=== PATIENT | female | born 1940 | race Caucasian/White ===

== ENCOUNTER 2017-12-06 07:10 | Day surgery (SDC) | payer MEDICARE, OTHER ==
[~2017-12-06 07:10] MED LIST: ALLO100 PO; BISHYD2.5 PO; LANS15EC PO
== END 2017-12-06 23:02 | disposition home or self-care (01) ==
LOC: MOI MAM 07:10
PROC: 0HBT3ZX Excision of Right Breast, Percutaneous Approach, Diagnostic (ICD-10-PCS; principal; 2017-12-06)
DX: D05.01 Lobular carcinoma in situ of right breast (principal); N60.81 Other benign mammary dysplasias of right breast
CPT/HCPCS: 19083; 77065; 88305; A4648; G0279

== ENCOUNTER 2020-02-22 09:31 | Day surgery (SDC) | payer MEDICARE, OTHER ==
[~2020-02-22] VITALS: Ht 157.5 cm; Wt 80.7 kg
[~2020-02-22 09:31] MED LIST changes: +ACET325 PO; +ALAVERT PO; +ALEVE220 MG PO; +ANAS1 PO; +PANT40 PO; +Sudogest60 MG PO; +VITAMIN D3125 MC3 PO; +ZOLEDRONIC ACID INJ
[2020-02-22] MEDS ORDERED: BISOPROLOL-HCT1 EAC1 PO (10:07)
--- NOTE | 2020-02-22 10:39 | NUR ---
History, Chart, Medications and Allergies reviewed before start of procedure. Lungs clear T/O to Auscultation. Patient confirms NPO status and agrees with scheduled surgery. Pre-Op teaching done. Pt verbalizes understanding. Patient reports completing Chlorhexadine shower X2 prior to admission to hospital.
--- NOTE | 2020-02-22 10:53 | NUR ---
PT REMOVED HEARING AID AND GLASSES AND PLACED IN HER BELONGINGS BAG.
--- NOTE | 2020-02-22 15:58 | NUR ---
PT ARRIVED TO THE ROOM AT APPROXIMATELY 1530. SHE HAS BEEN ALERT AND ORIENTED SINCE SHE ARRIVED. PAIN IS MANAGED. SHE IS MOVING ALL HER EXTREMITIES BUT REPORTS DECREASED SENSATION TO HER BLE, SHE HAD SPINAL ANESTHESIA. SHE DENIES NAUSEA AND IS TOLERATING PO. VSS. WILL MONITOR UNTIL REPORT TO ONCOMING RN.
--- NOTE | 2020-02-22 18:48 | NUR ---
SHIFT SUMMARY PT IS POD#0 FROM A R TERRI WITH DR. WOODSON. PT IS TOLERATING PO. PT CAME OUT LATE SO HE WAS UNABLE TO WORK WITH THERAPY. VSS. WILL MONITOR UNTIL REPORT TO ONCOMING RN.
--- NOTE | 2020-02-22 21:15 | NUR ---
AMBULATED TO COMMODE AND BACK TO BED WITH STANDBY ASSIST USING SAIT BELT AND FWW, TOLERATED WELL. SAFETY MEASURES IN PLACE. WILL CONTINUE TO MONITOR.
--- NOTE | 2020-02-23 03:30 | NUR ---
SHIFT SUMMARY LYING IN SEMI FOWLERS WITH EYES OPEN. HAS AMBULATED TO BATHROOM X2 THIS SHIFT WITH MINIMAL ASSISTANCE OF GAIT BELT AND FWW, TOLERATED WELL. AQUACEL TO RIGHT HIP IS C/D/I. PAIN MANAGED WITH SCHEDULED MEDS. DENIES FURTHER NEEDS OR WANTS AT THIS TIME. SAFETY MEASURES IN PLACE. WILL CONTINUE TO MONITOR AMD GIVE HAND OFF TO ONCOMING SHIFT USING SBAR.
[2020-02-23 05:02] LABS: BASOPHILS ABSOLUTE AUTO 0.01 K/mm3 (0.00-0.23); BASOPHILS PERCENT AUTO 0 % (0-2); EOSINOPHILS PERCENT AUTO 0 % (0-6); Hematocrit 30.1 % (33.0-51.0); Hemoglobin 10.1 g/dL (11.5-16.0); IMMATURE GRAN ABSOLUTE AUTO 0.08 K/mm3 (0.00-0.10); IMMATURE GRAN PERCENT AUTO 1 % (0-1); LYMPHOCYTES ABSOLUTE AUTO 1.51 K/mm3 (0.84-5.20); LYMPHOCYTES PERCENT AUTO 10 % (21-46); MONOCYTES ABSOLUTE AUTO 0.97 K/mm3 (0.16-1.47); MONOCYTES PERCENT AUTO 6 % (4-13); Mean Corpuscular HGB 30.8 pg (26.0-34.0); Mean Corpuscular HGB Conc 33.6 g/dL (31.5-36.5); Mean Corpuscular Volume 92 fL (80-100); Mean Platelet Volume 8.7 fL (9.1-12.4); NEUTROPHILS ABSOLUTE AUTO 13.25 K/mm3 (1.96-9.15); NEUTROPHILS PERCENT AUTO 84 % (41-73); Platelet Count 279 K/mm3 (150-400); RDW Coefficient Variation 13.4 % (11.7-14.2); Red Blood Cell Count 3.28 M/mm3 (3.80-5.20); White Blood Cell Count 15.82 K/mm3 (4.00-11.30)
[2020-02-23 05:32] LABS: Anion Gap 4 mmol/L (6-16); Blood Urea Nitrogen 15 mg/dL (8-24); Bun/Creatinine Ratio 21.2 (12.0-20.0); CO2, Blood 28 mmol/L (21-32); Calcium, Blood 9.5 mg/dL (8.5-10.1); Chloride, Blood 100 mmol/L (98-108); Creatinine, Blood 0.71 mg/dL (0.40-1.00); Glomerular Filtration Rate >60 (60-); Glucose, Blood 131 mg/dL (70-99); Magnesium, Blood 1.7 mg/dL (1.6-2.4); Potassium, Blood 4.2 mmol/L (3.5-5.5); Sodium, Blood 132 mmol/L (136-145)
[2020-02-23] MEDS ORDERED: Loratadine10 MG PO (11:01)
[2020-02-23] MEDS ORDERED: Norco 5-325 Ta1 EACH PO (11:02)
[2020-02-23] MEDS ORDERED: XARELTO20 MG PO (11:02)
--- NOTE | 2020-02-23 14:29 | NUR ---
DISCHARGE: PT CLEARED THERAPY. PACKET PRINTED AND PT EDUCATED. PT SENT WITH PAIN SCRIPT AND AQUACEL DRESSINGS. MEDS FAXED TO [facility]. PT LEFT UNIT VIA WHEELCHAIR WITH JORGE LOPEZ AND
== END 2020-02-23 13:45 | disposition home or self-care (01) ==
LOC: ORSCMMR 09:31 → EDSTATUS 11:30 → PRE IP 11:30 → SURS 15:30 → ORSCMMR 02-23 13:45
PROVIDERS: Orthopaedic Surgery
PROC: 0SR90JA Replacement of Right Hip Joint with Synthetic Substitute, Uncemented, Open Approach (ICD-10-PCS; principal; 2020-02-22 11:30)
DX: M16.11 Unilateral primary osteoarthritis, right hip (principal); I10 Essential (primary) hypertension; G47.33 Obstructive sleep apnea (adult) (pediatric); J45.909 Unspecified asthma, uncomplicated; K21.9 Gastro-esophageal reflux disease without esophagitis; Z79.899 Other long term (current) drug therapy
CPT/HCPCS: 36415; 72170; 80048; 83735; 85025; 88300; 97110; 97116; 97162; A9270-GY; C1713; C1776; J0171; J0690; J0735; J1100; J1885; J2250; J2370; J2405; J2704; J2795; J3010; J7120

== ENCOUNTER 2021-03-08 07:14 | Day surgery (SDC) | payer MEDICARE, OTHER ==
[~2021-03-08] VITALS: Ht 160 cm; Wt 87.7 kg
[~2021-03-08 07:14] MED LIST changes: +BISOPROLOL-HCT1 EAC1 PO; +Loratadine10 MG PO; +Norco 5-325 Ta1 EACH PO; +XARELTO20 MG PO
--- NOTE | 2021-03-08 07:38 | NUR ---
03/08/21 0738 Tammie Salas TETRACAINE APPLIED TO LEFT EYE AT 0735 AND PLEDGET APPLIED AT 0738
--- NOTE | 2021-03-08 08:41 | NUR ---
03/08/21 0841 Jackie Rivera PT HAD HEALING WOUND ON TOP OF NOSE RELATED TO RECENT SAIRA PROCEDURE.
== END 2021-03-08 09:15 | disposition home or self-care (01) ==
LOC: ORSCSDS 07:14
PROVIDERS: Ophthalmology
PROC: 08RK3JZ Replacement of Left Lens with Synthetic Substitute, Percutaneous Approach (ICD-10-PCS; principal; 2021-03-08 08:30)
DX: H25.12 Age-related nuclear cataract, left eye (principal); I10 Essential (primary) hypertension; G47.33 Obstructive sleep apnea (adult) (pediatric); E66.9 Obesity, unspecified; Z68.33 Body mass index [BMI] 33.0-33.9, adult; Z79.899 Other long term (current) drug therapy
CPT/HCPCS: J2001; J2250; J3010; J3301; V2632

== ENCOUNTER 2021-08-29 08:06 | Day surgery (SDC) | payer MEDICARE, OTHER ==
[~2021-08-29] VITALS: Ht 160 cm; Wt 81.4 kg
[~2021-08-29 08:06] MED LIST changes: +Allergy Relief10 M1 PO; +BISOPROLOL-HCT1 EAC2 PO; +FLONASE ALLERG9.9 M2; +ZOLEDRONIC ACID4 M1
--- NOTE | 2021-08-29 10:29 | NUR ---
08/29/21 Marisela8 Precious Foster LATE ENTRY SPOKE WITH REGARDING PT. PATIENT ORIGINALLY SCHEDULED FOR MAC DUE TO [place] DIAGNOSIS IN 2018. PT WAS NURSE SEDATION IN 2017 AND HAS HAD NO CHANGES IN WEIGHT OR HEALTH SINCE THEN. THE ONLY NEW DIAGNOSIS WAS [place]. OK TO PROCEED WITH NURSE SEDATION.
== END 2021-08-29 10:51 | disposition home or self-care (01) ==
LOC: ORSCSDS 08:06
PROVIDERS: Internal Medicine Gastroenterology
PROC: 0DBK8ZX Excision of Ascending Colon, Via Natural or Artificial Opening Endoscopic, Diagnostic (ICD-10-PCS; principal; 2021-08-29 09:30)
DX: Z12.11 Encounter for screening for malignant neoplasm of colon (principal); Z86.010 Personal history of colon polyps; D12.2 Benign neoplasm of ascending colon; G47.33 Obstructive sleep apnea (adult) (pediatric); K57.30 Diverticulosis of large intestine without perforation or abscess without bleeding; Z79.899 Other long term (current) drug therapy
CPT/HCPCS: 88305; J2704; J7120

== ENCOUNTER 2022-01-01 09:52 | Day surgery (SDC) | payer MEDICARE, OTHER ==
[~2022-01-01] VITALS: Ht 157.5 cm; Wt 81.2 kg
[~2022-01-01 09:52] MED LIST changes: +Calcium Carbon500 MG PO; +IRBESARTAN150 M2 PO; +NAPR220 PO; +Norco 5-325 Ta1 EACH; -Sudogest60 MG PO; +VITAMIN D310 MC4 PO; +[UNRECOGNIZED DRUG - OTHER] PO
--- NOTE | 2022-01-01 12:31 | NUR ---
Ambulatory in Day Surgery History, Chart, Medications and Allergies reviewed before start of procedure.Pre-Op teaching done. Pt verbalizes understanding.
--- NOTE | 2022-01-01 19:19 | NUR ---
SHIFT SUMMARY PT STATUS POST R TOTAL KNEE WITH DR. WOODSON. PT HAD A SPINAL BLOCK AND HAS REGAINED SENSATION IN HER LOWER EXTREMITIES. SHE HAS GOTTEN UP TO THE BATHROOM AND WAS ABLE TO VOID. MEDICATED PER EMR FOR PAIN AND NAUSEA. REPORT GIVEN TO ONCOMING RN.
--- NOTE | 2022-01-02 04:10 | NUR ---
SHIFT SUMMARY NO ACUTE CHANGES THIS SHIFT. PT RESTED WELL. R KNEE DRESSING REMAINS CDI. TYLENOL/TORADOL/NORCO FOR PAIN MANAGEMENT. UP WITH 1 SBA USING FWW + GB. HARVEY PO. IV SL. USES CALL LIGHT APPROPRIATELY.
[2022-01-02 05:25] LABS: BASOPHILS ABSOLUTE AUTO 0.01 K/mm3 (0.00-0.23); BASOPHILS PERCENT AUTO 0 % (0-2); EOSINOPHILS PERCENT AUTO 0 % (0-6); Hematocrit 35.7 % (33.0-51.0); Hemoglobin 11.7 g/dL (11.5-16.0); IMMATURE GRAN ABSOLUTE AUTO 0.04 K/mm3 (0.00-0.10); IMMATURE GRAN PERCENT AUTO 0 % (0-1); LYMPHOCYTES ABSOLUTE AUTO 1.18 K/mm3 (0.84-5.20); LYMPHOCYTES PERCENT AUTO 11 % (21-46); MONOCYTES ABSOLUTE AUTO 0.56 K/mm3 (0.16-1.47); MONOCYTES PERCENT AUTO 5 % (4-13); Mean Corpuscular HGB 30.2 pg (26.0-34.0); Mean Corpuscular HGB Conc 32.8 g/dL (31.5-36.5); Mean Corpuscular Volume 92 fL (80-100); Mean Platelet Volume 8.7 fL (9.1-12.4); NEUTROPHILS ABSOLUTE AUTO 8.55 K/mm3 (1.96-9.15); NEUTROPHILS PERCENT AUTO 83 % (41-73); Platelet Count 239 K/mm3 (150-400); RDW Coefficient Variation 13.5 % (11.7-14.2); RDW Standard Deviation 46.2 fL (35.1-46.3); Red Blood Cell Count 3.87 M/mm3 (3.80-5.20); White Blood Cell Count 10.34 K/mm3 (4.00-11.30)
[2022-01-02 05:46] LABS: Bun/Creatinine Ratio 21.6 (12.0-20.0); Calcium, Blood 9.3 mg/dL (8.5-10.1); Creatinine, Blood 0.79 mg/dL (0.40-1.00); Magnesium, Blood 1.8 mg/dL (1.6-2.4); Potassium, Blood 4.6 mmol/L (3.5-5.5)
[2022-01-02] MEDS ORDERED: Calcium Carbon500 MG PO (08:57)
[2022-01-02] MEDS ORDERED: NAPR220 PO (08:59)
[2022-01-02] MEDS ORDERED: ACET500 PO (09:00)
[2022-01-02] MEDS ORDERED: XARELTO10 M5 PO (09:01)
--- NOTE | 2022-01-02 11:19 | NUR ---
DISCHARGE SUMMARY POD1 R TKA, A/OX4, VSS, TOLERATING PO, VOIDING WELL, PAIN WELL MANAGED. WORKED WELL WITH THERAPY. DISCUSSED DISCHARGE INFORMATION INCLUDING MEDICATIONS, HOME CARE OF THE SURGICAL SITE, S/SX TO LOOK FOR, CONTACT INFORMATION SHOULD QUESTIONS COME UP AFTER DISCHARGE, AND FOLLOW UP APPOINTMENTS WHICH SHE CONFIRMED WAS ALREADY MADE. IV ACCESS REMOVED AND NO OTHER DEVICES IN PLACE, PT ESCORTED OUT VIA WC TO PRIVATE AUTO TO GO HOME.
== END 2022-01-02 10:00 | disposition home or self-care (01) ==
LOC: ORSCMMR 09:52 → ORD 11:30 → ORSCMMR 12:15 → ORD 14:45 → SURS 15:39 → ORSCMMR 01-02 10:00
PROVIDERS: Orthopaedic Surgery
PROC: 8E0Y0CZ Robotic Assisted Procedure of Lower Extremity, Open Approach (ICD-10-PCS; 2022-01-01)
PROC: 0SRC0JA Replacement of Right Knee Joint with Synthetic Substitute, Uncemented, Open Approach (ICD-10-PCS; principal; 2022-01-01 12:15)
DX: M17.11 Unilateral primary osteoarthritis, right knee (principal); I10 Essential (primary) hypertension; G47.33 Obstructive sleep apnea (adult) (pediatric); J45.909 Unspecified asthma, uncomplicated; Z79.899 Other long term (current) drug therapy
CPT/HCPCS: 27447; 0055T; S2900; 36415; 73560-RT; 80048; 83735; 85025; 97110; 97116; 97162; A9270; C1776; J0171; J0690; J0735; J1100; J1170; J1885; J2250; J2370; J2405; J2704; J2795; J3010; J7120

== ENCOUNTER 2022-09-12 06:38 | Day surgery (SDC) | payer MEDICARE, OTHER ==
[~2022-09-12] VITALS: Ht 160 cm; Wt 79.1 kg
[~2022-09-12 06:38] MED LIST changes: +ACET500 PO; +XARELTO10 M5 PO
--- NOTE | 2022-09-12 07:07 | NUR ---
09/12/22 0707 Leny Barker AT 0700 PLEDGET AT 0702
== END 2022-09-12 08:40 | disposition home or self-care (01) ==
LOC: ORSCSDS 06:38
PROVIDERS: Ophthalmology
PROC: 08DJ3ZZ Extraction of Right Lens, Percutaneous Approach (ICD-10-PCS; principal; 2022-09-12 08:00)
DX: H25.11 Age-related nuclear cataract, right eye (principal); I10 Essential (primary) hypertension; Z79.899 Other long term (current) drug therapy
CPT/HCPCS: J2001; J2250; J3010; J3301; J7040; J7120; V2632